=== PATIENT | male | born 1965 | race Caucasian/White ===

== ENCOUNTER → 2021-06-06 | Day surgery (SDC) | payer OTHER ==
[~2021-06-06] VITALS: Ht 177.8 cm; Wt 106.8 kg
[~2021-06-06] MED LIST: LIPITOR40 MG PO; LISINOPRIL-HCT1 EACH PO; METFORMIN HCL500 MG PO; MULTI-VITAMIN1 EACH PO; NORCO 5-325 TA1 EACH PO; OZEMPIC1 MG/0.71 SC; PRILOSEC20 MG PO; PROTONIX 40MG T40 MG PO; STEGLATRO15 MG PO
== END | disposition home or self-care (01) ==
LOC: FAS 07:23
DX: K21.00 Gastro-esophageal reflux disease with esophagitis, without bleeding (principal); K31.7 Polyp of stomach and duodenum; K31.9 Disease of stomach and duodenum, unspecified; I10 Essential (primary) hypertension; E11.9 Type 2 diabetes mellitus without complications; E78.00 Pure hypercholesterolemia, unspecified; G47.30 Sleep apnea, unspecified; F17.200 Nicotine dependence, unspecified, uncomplicated; Z99.89 Dependence on other enabling machines and devices; Z79.84 Long term (current) use of oral hypoglycemic drugs; Z79.899 Other long term (current) drug therapy; Z80.1 Family history of malignant neoplasm of trachea, bronchus and lung; Z82.49 Family history of ischemic heart disease and other diseases of the circulatory system
CPT/HCPCS: J2250; J2704; J7120